=== PATIENT | male | born 1990 | race Two or more races ===

== ENCOUNTER 2025-02-08 09:37 | Outpatient (AMB) | payer OTHER, SELFPAY ==
--- NOTE | 2025-02-08 09:40 | A.OFFVIS_ITS ---
Intake Visit Reasons: Vasectomy consult Intake Note: Patient is present for VASECTOMY CONSULTS Urology Medication:NONE Antibiotic Allergy:NONE Blood Thinner:NONE Field Interviewer Required: No Allergies No Known Allergies (No Known Allergies*) Allergy (Verified 02/08/25 09:41) HPI Comments Details: Romulo is a very pleasant male. He is a patient of . He is seen for the following urologic condition - anxiety about health - Vasectomy evaluation Vasectomy evaluation The patient presents for vasectomy consultation. He is currently He has fathered - 3 child, with a single partner. The youngest child is - 8 month. His partner is aware and permissive for a vasectomy Current form of control is barrier. 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 Patient education has been provided via AUA video, via printed information, risks of failure, recovery time, bruising and potential pain syndrome have been stressed Discussion today focused on the presence of vasectomy and the risks, benefits and alternatives that are available. Vasectomy as intended as a permanent form of control. Printed information and literature was provided to the patient. Overall there is a one in 2500 failure rate. This can occur at any time after vasectomy. Risks were discussed highlighting hematoma, spermatocele, epididymal congestion, development of sperm antibodies, and development of chronic pain estimated between 1-5%. The procedure was reviewed in detail. Anatomical diagrams of the male genitalia were used to explain the location of the vas deferens. The vas deferens will be transected, the proximal end will be cauterized, a metal clip would be applied to separate the 2 vas deferens ends. It was explained the procedure will be done in the office and takes approximately 10-15 minutes. Less common problems that arise with vasectomy include hematoma, bleeding, allergic reaction to anesthetic, epididymal infection, epididymal congestion, scrotal discomfort, spermatic leak, spermatic granuloma and the possibility of antisperm antibodies. He understands these risks and wishes to proceed. Consent was signed at the office today. He also understands that it takes 12 weeks for sperm to fully clear the system. He will need to provide a semen sample at 12 weeks and if this is not clear a 2nd sample at 16 weeks. Medical clearance to stop using protection will only be provided if he satisfies published criteria for sperm clearance. Review of Systems Const Denies chills and Denies fever(s) Card Reports no additional complaints and Denies syncope Resp Denies cough GI Denies abdominal pain and Denies heartburn Reports as per HPI and Denies change in libido Neuro Denies syncope Psych Denies change in libido Endo Denies change in libido Physical Exam Const General: cooperative, healthy appearing, comfortable and no acute distress Orientation/consciousness: patient oriented x3 HEENT Face and sinus: Yes normal facial exam Mouth: moist mucous membranes Neck Neck: Yes normal visual inspection, Yes full ROM and Yes trachea midline Chest Chest palpation & inspection: normal inspection of the chest Resp Effort & Inspection: normal respiratory effort, able to speak in complete sentences and no respiratory distress GI Inspection: Yes normal to inspection Back/Spine/Pelvis Cervical Spine: normal cervical lordosis Thoracic/Lumbar Spine: thoracic and lumbar spine normal to inspection Skin General skin exam: no rashes or lesions noted Neuro General: patient oriented x3, gait normal, tone normal and moves all extremities Extrem General: Yes normal to inspection and Yes capillary refill normal Assessment & Plan Assessment & Plan (1) Anxiety about health: Code(s): R45.89 - Other symptoms and signs involving emotional state Category: Medical Plan Schedule vasectomy Medications: New diazepam Take medication after arrival at office 2 mg PO BID PRN 2 tabs 0RF anxiety 1 day R45.89 - Other symptoms and signs involving emotional state tramadol 50 mg PO Q8H PRN 7 tabs 0RF pain N43.3 - Hydrocele, unspecified, R45.89 - Other symptoms and signs involving emotional state Patient Instructions: This note is constructed using voice recognition software. While every effort has been made to ensure accuracy residential field manager errors may have been included. Imaging studies, laboratory and physical exam results were discussed and reviewed in detail. No major barriers to patient understanding were identified. An opportunity to ask questions regarding the treatment plan was provided. All questions were answered. The patient expressed understanding and agreement with the above treatment plan. The patient is aware they should contact our office by phone for worsening of their current condition or the appearance of new urologic symptoms. Compliance is encouraged with any medications and followup testing that is ordered. It is a privilege to participate in the urologic care of your patient. If you have any questions or concerns regarding treatment for the above conditions, or other urologic issues, please do not hesitate to contact me. The office telephone contact is [phone]. Sincerely, Dr Rah Antonio MD, [facility] - Urology Compassionate Specialist Care for the Genitourinary System Coding Level of Care Code New Pt Level 4 (74603) Diagnoses Anxiety about health R45.89
--- OUTSIDE RECORDS SUMMARY | 2025-02-08 09:54 | XMS_ITS | Clinical Summary ---
Author Organization [facility] [email or web address] [facility] ity Address [address] [place] [address] Care Team Providers Care Supervisor Chassis Assembly Name Role Phone Alyson Marquez MD Primary Care Provider [phone] Social History Tobacco Use Types Packs/Day Years Used Date Smoking Tobacco: Never Assessed Sex and Gender Information Value Date Recorded Sex Assigned at Not on file Legal Sex Male 4:35 AM EST Gender Identity Not on file Sexual Orientation Not on file Plan of Treatment Upcoming Encounters Date Type Department Care Team (Late st Contact Info) Description 08/27/2025 9:00 AM EST [facility] [address] [place] [address] Alyson Marquez MD [address] [place] [address] Health Maintenance Due Date Last Done Comments DTaP,Tdap,and Td Vaccines (1 - Tdap) 2011 Hepatitis B Vaccines (1 of 3 - 19+ 3-dose series) 2011 COVID-19 Vaccine ( - 2023-2 5 season) 2024 Depression Screening 12/10/2024 HIV Screening 12/10/2024 Hepatitis C Screening 12/10/2024 Social Influencers of Health Screening 12/10/2024 Influenza Vaccine (#1) 2025 HIB Vaccines Aged Out No longer eligi ble based on patient's age to complete this topic HPV Vaccines Aged Out No longer eligi ble based on patient's age to complete this topic Hepatitis A Vaccines Aged Out No long er eligible based on patient's age to complete this topic IPV Vaccines Aged Out No longer eligi ble based on patient's age to complete this topic MMR Vaccines Aged Out No longer eligi ble based on patient's age to complete this topic Meningococcal ACWY Vaccine Aged Out N o longer eligible based on patient's age to complete this topic Meningococcal B Vaccine Aged Out No l onger eligible based on patient's age to complete this topic Pneumococcal Vaccine: Pediat rics (0 to 5 Years) and At-Risk Patients (6 to 49 Years) Aged Out No longer eligible b ased on patient's age to complete this topic RSV Immunization Patients Un horace 20 months Aged Out No longer eligible b ased on patient's age to complete this topic Varicella Vaccines Aged Out No longer eligible based on patient's age to complete this topic Insurance [facility] [employer] Care Teams Supervisor Chassis Assembly Relationship Specialty Start Date End Date Alyson Marquez MD [address] [place] [id number] PCP - General Internal Medicine 12/10/24
== END 2025-02-08 10:50 | disposition home or self-care (01) ==
LOC: HO.HUSH 09:38
PROVIDERS: Visit Provider Urology
DX: R45.89 Other symptoms and signs involving emotional state (principal)
CPT/HCPCS: 99204

== ENCOUNTER → 2025-02-08 09:37 | Outpatient (BNVA) | payer OTHER, SELFPAY | PROVIDERS: Visit Provider Urology | DX: Z30.2 Encounter for sterilization (principal); R45.89 Other symptoms and signs involving emotional state | CPT/HCPCS: 99202 ==

== ENCOUNTER 2025-04-09 14:59 | Outpatient (AMB) | payer OTHER, SELFPAY ==
--- NOTE | 2025-04-09 15:03 | MHC.OFFVIS ---
Intake Visit Reasons: vasectomy Intake Note: Patient is present for VASECTOMY Urology Medication:NONE Antibiotic Allergy:NONE Blood Thinner:NONE Airplane Captain Required: No Accompanied by: Self / Same As Patient Allergies No Known Allergies (No Known Allergies*) Allergy (Verified 04/09/25 15:03) HPI Comments Details: Romulo is a very pleasant male. He is a patient of . He is seen for the following urologic condition - anxiety about health - Vasectomy procedure Vasectomy procedure The patient presents for vasectomy procedure. He is currently He has fathered - 3 child, with a single partner. The youngest child is - 8 month. His partner is aware and permissive for a vasectomy Current form of control is barrier. 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 Review of Systems Const Denies chills and Denies fever(s) Card Reports no additional complaints and Denies syncope Resp Denies cough GI Denies abdominal pain and Denies heartburn Reports as per HPI and Denies change in libido Neuro Denies syncope Psych Denies change in libido Endo Denies change in libido Physical Exam Const General: cooperative, healthy appearing, comfortable and no acute distress Orientation/consciousness: patient oriented x3 HEENT Face and sinus: Yes normal facial exam Mouth: moist mucous membranes Neck Neck: Yes normal visual inspection, Yes full ROM and Yes trachea midline Chest Chest palpation & inspection: normal inspection of the chest Resp Effort & Inspection: normal respiratory effort, able to speak in complete sentences and no respiratory distress GI Inspection: Yes normal to inspection Back/Spine/Pelvis Cervical Spine: normal cervical lordosis Thoracic/Lumbar Spine: thoracic and lumbar spine normal to inspection Skin General skin exam: no rashes or lesions noted Neuro General: patient oriented x3, gait normal, tone normal and moves all extremities Extrem General: Yes normal to inspection and Yes capillary refill normal Office Procedures Vasectomy Details: Preoperative diagnosis: Anxiety regarding Postoperative diagnosis: Anxiety regarding unplanned Procedure: Bilateral vasectomy Informed consent had been completed. Preoperative and postoperative instructions were provided to the patient. The patient has transportation home identified at the completion of the procedure. Anti-anxiolytic prescription medication had been taken after consent verification and all questions answered. A limited amount of pain medication was also provided. The penis was elevated using a rubber band that was attached to the patient's shirt. Both vasa were palpated through the skin using a 3 finger technique and the penoscrotal junction was prepped with Betadine. After Betadine application the left vas was elevated using a 3 finger grasping technique. 1% lidocaine was used to create a subdermal bubble. Further anesthetic was then advanced using the 25-gauge needle along the vasa in a proximal fashion. Approximately 2 minutes were allowed to for local anesthetic uptake. Using the sharp spreading instrument the scrotal skin was spread longitudinally in line with the vasa until the subdermal layer had been divided. The vasa was then elevated from the scrotum using a ring clamp. Care was taken to elevate the superior portion of the vasa by rotating the ring clamp in a caudad direction. The battery powered cautery was used to divide the vasal sheath in a longitudinal direction on the exposed vasa and to strip the vasal sheath from the vasa. The sharp spreading instrument was used to further expose the vas within the vasal sheath. A 2nd narrower ring clamp was placed on the exposed vas and used to lift the vas from the vasal sheath. The cautery was used to divide vasal attachments and allow full exposure of a small loop of vasa. The sharp spreading instrument was then used to create a tunnel under the vasa and spread to allow the blood vessels of the vasa to retract from the vasa. A mosquito clamp was placed on the proximal portion of the vas. The battery-powered cautery was used to make a partial division in the proximal vas and then inserted in order to cauterize the proximal end of the vas. This was then cut and allowed to retract into the vasal sheath. The mosquito was then used to twist the vasa 180 degrees creating a fascial interposition as the proximal portion of the vas retracted in the vasal sheath. Using a 4-0 chromic suture the fascial interposition was sutured closed. The distal portion of the vas was then cut in order to obtain a segment of vasa. An open distal vas is preferred for minimizing postprocedure pain. The vasa were allowed to retract back into the scrotum. A small snap was then used to approximate the skin edges and allow hemostasis without placement of a suture. A similar procedure was repeated on the right side. He tolerated the procedure well. Triple antibiotic was applied. A gauze was applied. An ice pack was applied to assist with minimizing swelling. Postoperative instructions were confirmed. He understands the need to continue to use control methods. A semen sample should be brought for inspection under the microscope in 10-12 weeks. CPT 80307 Informed consent given: Yes Informed consent signed: Yes Time out checklist: patient, procedure, site marked/identified, positioning of patient, supplies available, allergies confirmed and team agrees on procedure Anesthetic used: other Specimens: vas segments not sent to pathology [id number] - Vasectomy Office Meds lidocaine (PF) 10 mg/mL (1 %) injection solution Performing Provider: Rah Antonio MD [facility] Administered by: Leah Cordova RN on 04/09/25 15:13 Dose Route Admin Location Dispensed Lot Number Expiration Date NDC Human Relations Manager 2 mL Infiltration 10 mL Total Dispensed Waste 10 mL 0 % Assessment & Plan Assessment & Plan (1) Anxiety about health: Code(s): R45.89 - Other symptoms and signs involving emotional state Category: Medical Plan Three-month follow-up office semen analysis Orders: Orders AMB Vasectomy Today R45.89 - Other symptoms and signs involving emotional state Patient Instructions: This note is constructed using voice recognition software. While every effort has been made to ensure accuracy vacuum tester cans errors may have been included. Imaging studies, laboratory and physical exam results were discussed and reviewed in detail. No major barriers to patient understanding were identified. An opportunity to ask questions regarding the treatment plan was provided. All questions were answered. The patient expressed understanding and agreement with the above treatment plan. The patient is aware they should contact our office by phone for worsening of their current condition or the appearance of new urologic symptoms. Compliance is encouraged with any medications and followup testing that is ordered. It is a privilege to participate in the urologic care of your patient. If you have any questions or concerns regarding treatment for the above conditions, or other urologic issues, please do not hesitate to contact me. The office telephone contact is [phone]. Sincerely, Dr Rah Antonio MD, [facility] - Urology Compassionate Specialist Care for the Genitourinary System Coding Level of Care Code Procedure Only Diagnoses Anxiety about health R45.89 CPT Codes Office Procedure - CPT: 44731 - Vasectomy ([id number])
--- OUTSIDE RECORDS SUMMARY | 2025-04-09 17:25 | XMS_ITS | Clinical Summary ---
Author Organization [facility] ity Address [address] [place] [address] Care Team Providers Care Real Estate Sales Supervisor Name Role Phone Alyson Marquez MD Primary Care Provider [phone] Social History Tobacco Use Types Packs/Day Years [...] AM EST [facility] [address] [place] [address] Alyson Marquez MD [address] [place] [address] Health Maintenance Due Date Last Done Comments DTaP,Tdap,and Td Vaccines (1 - Tdap) 2011 Hepatitis B Vaccines (1 of 3 - 19+ 3-dose series) 2011 Depression Screening 08/01/2024 HIV Screening 12/10/2024 Hepatitis C Screening 12/10/2024 Social Influencers of Health Screening 12/10/2024 COVID-19 Vaccine ( - 2023-2 5 season) 2025 Influenza Vaccine (#1) 2025 HIB Vaccines Aged [...] patient's age to complete this topic Insurance [facility] PL[facility] Care Teams Real Estate Sales Supervisor Relationship Specialty Start Date End Date Alyson Marquez MD [address] [place] [phone] PCP - General Internal Medicine 12/10/24
== END 2025-04-09 15:53 | disposition home or self-care (01) ==
LOC: HO.HUSH 14:59
PROVIDERS: Visit Provider Urology
DX: Z30.2 Encounter for sterilization (principal); R45.89 Other symptoms and signs involving emotional state
CPT/HCPCS: 55250

== ENCOUNTER → 2025-04-09 14:59 | Outpatient (BNVA) | payer OTHER, SELFPAY | PROVIDERS: Visit Provider Urology | DX: R45.89 Other symptoms and signs involving emotional state (principal) | CPT/HCPCS: 55250; J2003 ==

== ENCOUNTER 2025-07-24 10:58 | Outpatient (AMB) | payer OTHER, SELFPAY ==
--- OUTSIDE RECORDS SUMMARY | 2025-07-24 11:05 | XMS_ITS | Clinical Summary ---
Author Organization [address] Building Address [address] [place] [address] Phone Care Team Providers Care Material Disposition Inspector Name Role Phone Alyson Marquez MD Primary Care Provider [phone] Social History Tobacco Use Types Packs/Day Years [...] AM EST Office Visit Internal Medicine - [address] [phone] Alyson Marquez MD [address] [place] [address] Health Maintenance Due Date Last Done Comments DTaP,Tdap,and Td Vaccines (1 - Tdap) 2011 Hepatitis B Vaccines (1 of 3 - 19+ 3-dose series) 2011 HPV Vaccines (1 - 3-dose SCD M series) 2019 Depression Screening 08/01/2024 HIV Screening 12/10/2024 Hepatitis C Screening 12/10/2024 Social Influencers of Health Screening 12/10/2024 COVID-19 Vaccine (1 - 2024-2 6 season) 2025 Influenza Vaccine (#1) 2025 RSV Immunization Adult Patie nts (1 - 1-dose 75+ series) 2067 HIB Vaccines Aged Out No longer eligi [...] patient's age to complete this topic Insurance [facility] Care Teams Material Disposition Inspector Relationship Specialty Start Date End Date Alyson Marquez MD [address] [place] [phone] PCP - General Internal Medicine 12/10/24
--- OUTSIDE RECORDS SUMMARY | 2025-07-24 11:05 | XMS_ITS | Data Portability ---
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 Plan of Treatment Reminders Order Date Submit Date Provider Last Modified By Organization Details Last Modified Time Details Appointments None recorded. Lab urinalysis, complete 2017 018 [facility], [address], [place], [id number], 8 14:33:33 lipid panel, serum 2017 018 [facility], [address], [place], [address], 8 19:00:09 CMP, serum or plasma 2017 018 [facility], [address], [place], [id number], 8 19:00:08 CBC w/ auto diff 2017 018 [facility], [address], [place], [address], 8 14:35:00 tissue transglutam inase iga Ab, serum 2016 017 [facility], [address], [place], [address], 7 13:43:48 lipid panel, serum 2016 017 [facility], [address], [place], [address], 7 20:35:22 CMP, serum or plasma 2016 017 [facility], [address], [place], [id number], 7 20:35:21 CBC w/ auto diff 2016 017 [facility], [address], [place], [address], 7 19:33:58 Referral nutritionis t/dietitian referral 2017 018 [email or web address] Not available 8 12:37:15 nutritionis t/dietitian referral 2016 017 [email or web address] Not available 7 10:25:06 Procedures None recorded. Surgeries None recorded. Imaging None recorded. Medication Orders None recorded. Patient TargetsNo targets recorded. Patient Instructions Encounter Date Encounter Id Patient Instructions Last Modified By Organization Details Last Modified Time 11/01/2016 [id number] managing your allergies: care instructions [email or web address] Not available 11/01/2016 10:24:42 diarrhea: care instructions [email or web address] Not available 11/01/2016 10:24:42 kidney stone: care instructions [email or web address] Not available 11/01/2016 10:24:42 When You Want to Lose Weight: Care Instructions Not available 11/01/2016 10:24:41 Nutrition Referral and Weight Management Follow-up Information [email or web address] Not available 11/01/2016 10:24:18 rec. trial of citrucel as a fiber supp / bulking agent consider start taking claritin daily for prevention of seasonal allergies pmadden Not available 11/01/2016 10:17:51 I have reviewed the note and agree with the assessment and plan of care. [email or web address] Not available 11/01/2016 14:32:50 11/23/2017 [id number] managing your allergies: care instructions pmadden Not available 11/23/2017 11:24:05 allergies: care instructions pmadden Not available 11/23/2017 11:24:06 saline nasal washes: care instructions pmadden Not available 11/23/2017 11:24:06 kidney stone: care instructions pmadden Not available 11/23/2017 11:24:06 earwax blockage: care instructions pmadden Not available 11/23/2017 11:24:06 neck pain: care instructions pmadden Not available 11/23/2017 11:28:57 neck strain: care instructions pmadden Not available 11/23/2017 11:28:57 neck trapeziss upper fibers standing stretch: exercises pmadden Not available 11/23/2017 11:28:57 When You Want to Lose Weight: Care Instructions [email or web address] Not available 11/23/2017 11:24:06 Nutrition Referral and Weight Management Follow-up Information [email or web address] Not available 11/23/2017 11:24:05 rec. get debrox kit - apply 5 drops in affected ear before bedtime, then place cotton ball - do so nightly x 1-3 nights, then use bulb syringe with warm water in the shower on the following day to irrigate the blockage out - do so monthly for prevention, avoid use of q-tips pmadden Not available 11/23/2017 11:23:59 Medications (OTC, herbal therapies, supplements) reviewed and reconciled with patient and or caregiver, including potential side effects, drug interactions, instructions, and the consequences of not taking medication. Reviewed potential barriers to medication adherence, such as side effects from medication or cost of medication. I have reviewed the note and agree with the assessment and plan of care. 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 Body mass index 25-29 - overweight Referring Physician: Efren White, Internal Medicine, Encounter Date: 11/23/2017 Results Created Date Observation Date Name Description Value Unit Range Abnormal Flag Note LastModifiedBy Organization Detail LastModifiedTime 11/03/1911/02/2016 CBC w/ auto diff WBC 5.1 K/mm3 (4.0-1 1.0) Not Available [facility] (Centralized Electronic Ordering - All Locations) Patient Can Go To The Location Of Their Choice, 11/02/2016 19:33:58 11/03/1911/02/2016 CBC w/ auto diff RBC 5.39 M/mm3 (4.70- 6.10) Not Available [facility] (Centralized Electronic Ordering - All Locations) Patient Can Go To The Location Of Their Choice, 11/02/2016 19:33:58 11/03/1911/02/2016 CBC w/ auto diff HGB 15.5 gm/dL (14.0- 18.0) Not Available [facility] (Centralized Electronic Ordering - All Locations) Patient Can Go To The Location Of Their Choice, 11/02/2016 19:33:58 11/03/1911/02/2016 CBC w/ auto diff HCT 47.3 % (42.0- 52.0) Not Available [facility] (Centralized Electronic Ordering - All Locations) Patient Can Go To The Location Of Their Choice, 11/02/2016 19:33:58 11/03/1911/02/2016 CBC w/ auto diff MCV 87.8 fL (80.0- 94.0) Not Available [facility] (Centralized Electronic Ordering - All Locations) Patient Can Go To The Location Of Their Choice, 11/02/2016 19:33:58 11/03/1911/02/2016 CBC w/ auto diff MCH 28.8 pg (27.0- 34.0) Not Available [facility] (Centralized Electronic Ordering - All Locations) Patient Can Go To The Location Of Their Choice, 11/02/2016 19:33:58 11/03/1911/02/2016 CBC w/ auto diff MCHC 32.8 g/dL (33.0- 37.0) low Not Available [facility] (Centralized Electronic Ordering - All Locations) Patient Can Go To The Location Of Their Choice, 11/02/2016 19:33:58 11/03/1911/02/2016 CBC w/ auto diff plt 214 K/mm3 (150-4 60) Not Available [facility] (Centralized Electronic Ordering - All Locations) Patient Can Go To The Location Of Their Choice, 11/02/2016 19:33:58 11/03/1911/02/2016 CBC w/ auto diff RDW-SD 41.9 fL (<47.0 ) Not Available [facility] (Centralized Electronic Ordering - All Locations) Patient Can Go To The Location Of Their Choice, 11/02/2016 19:33:58 11/03/1911/02/2016 CBC w/ auto diff MPV 11.8 fL (9.4-1 2.4) Not Available [facility] (Centralized Electronic Ordering - All Locations) Patient Can Go To The Location Of Their Choice, 11/02/2016 19:33:58 11/03/1911/02/2016 CBC w/ auto diff automated NRBC 0.0 #/100 _WBC' s Not Available [facility] (Centralized Electronic Ordering - All Locations) Patient Can Go To The Location Of Their Choice, 11/02/2016 19:33:58 11/03/1911/02/2016 CBC w/ auto diff abs. NRBC 0.0 K/mm3 Not Available [facility] (Centralized Electronic Ordering - All Locations) Patient Can Go To The Location Of Their Choice, 11/02/2016 19:33:58 11/03/1911/02/2016 CMP, serum or plasm a glucose 96 mg/dL (70-99 ) Not Available [facility] (Centralized Electronic Ordering - All Locations) Patient Can Go To The Location Of Their Choice, 11/02/2016 20:35:21 11/03/1911/02/2016 CMP, serum or plasm a BUN 9 mg/dL (6-20) Not Available [facility] (Centralized Electronic Ordering - All Locations) Patient Can Go To The Location Of Their Choice, 11/02/2016 20:35:21 11/03/1911/02/2016 CMP, serum or plasm a creatinine 0.9 mg/dL (0.7-1 .2) Not Available [facility] (Centralized Electronic Ordering - All Locations) Patient Can Go To The Location Of Their Choice, 11/02/2016 20:35:21 11/03/1911/02/2016 CMP, serum or plasm a sodium 142 mmol/ L (133-1 45) Not Available [facility] (Centralized Electronic Ordering - All Locations) Patient Can Go To The Location Of Their Choice, 11/02/2016 20:35:21 11/03/1911/02/2016 CMP, serum or plasm a potassium 3.9 mmol/ L (3.6-5 .2) Not Available [facility] (Centralized Electronic Ordering - All Locations) Patient Can Go To The Location Of Their Choice, 11/02/2016 20:35:21 11/03/1911/02/2016 CMP, serum or plasm a chloride 104 mmol/ L (98-10 7) Not Available [facility] (Centralized Electronic Ordering - All Locations) Patient Can Go To The Location Of Their Choice, 11/02/2016 20:35:21 11/03/1911/02/2016 CMP, serum or plasm a bicarbonate 24 mmol/ L (22-29 ) Not Available [facility] (Centralized Electronic Ordering - All Locations) Patient Can Go To The Location Of Their Choice, 11/02/2016 20:35:21 11/03/1911/02/2016 CMP, serum or plasm a anion gap 14 (4-17) Not Available [facility] (Centralized Electronic Ordering - All Locations) Patient Can Go To The Location Of Their Choice, 11/02/2016 20:35:21 11/03/1911/02/2016 CMP, serum or plasm a albumin 4.8 gm/dL (3.4-4 .8) Not Available [facility] (Centralized Electronic Ordering - All Locations) Patient Can Go To The Location Of Their Choice, 11/02/2016 20:35:21 11/03/1911/02/2016 CMP, serum or plasm a calcium 9.4 mg/dL (8.6-1 0.5) Not Available [facility] (Centralized Electronic Ordering - All Locations) Patient Can Go To The Location Of Their Choice, 11/02/2016 20:35:21 11/03/1911/02/2016 CMP, serum or plasm a bilirubin,to abdifatah 1.2 mg/dL (0-1.2 ) Not Available [facility] (Centralized Electronic Ordering - All Locations) Patient Can Go To The Location Of Their Choice, 11/02/2016 20:35:21 11/03/1911/02/2016 CMP, serum or plasm a total protein 7.2 gm/dL (6.2-8 .2) Not Available [facility] (Centralized Electronic Ordering - All Locations) Patient Can Go To The Location Of Their Choice, 11/02/2016 20:35:21 11/03/1911/02/2016 CMP, serum or plasm a Ag ratio 2.0 Not Available [facility] (Centralized Electronic Ordering - All Locations) Patient Can Go To The Location Of Their Choice, 11/02/2016 20:35:21 11/03/1911/02/2016 CMP, serum or plasm a AST 16 U/L (0-38) Not Available [facility] (Centralized Electronic Ordering - All Locations) Patient Can Go To The Location Of Their Choice, 11/02/2016 20:35:21 11/03/1911/02/2016 CMP, serum or plasm a alk phos 69 U/L (40-12 9) Not Available [facility] (Centralized Electronic Ordering - All Locations) Patient Can Go To The Location Of Their Choice, 11/02/2016 20:35:21 11/03/1911/02/2016 CMP, serum or plasm a ALT 20 U/L (0-41) Not Available [facility] (Centralized Electronic Ordering - All Locations) Patient Can Go To The Location Of Their Choice, 11/02/2016 20:35:21 11/03/1911/02/2016 CMP, serum or plasm a est GFR non 119 mL/mi n/1.7 3_M2 The CKD-E PI creat inine equat ion has not been valid ated in child guido (<18 years ), pregn ant women , in some racia l or ethni c subgr oups other than Cauca sians and Afric an Ameri cans. Not Available [facility] (Centralized Electronic Ordering - All Locations) Patient Can Go To The Location Of Their Choice, 11/02/2016 20:35:21 11/03/1911/02/2016 CMP, serum or plasm a est GFR 138 mL/mi n/1.7 3_M2 The CKD-E PI creat inine equat ion has not been valid ated in child guido (<18 years ), pregn ant women , in some racia l or ethni c subgr oups other than [place]iy[place] mendy and Afric an Ameri cans. Not Available [facility] (Centralized Electronic Ordering - All Locations) Patient Can Go To The Location Of Their Choice, [id number] 11/02/2016 20:35:21 11/03/1911/02/2016 lipid panel , serum cholesterol, total 146 mg/dL (<200) Not Available [facility] (Centralized Electronic Ordering - All Locations) Patient Can Go To The Location Of Their Choice, 11/02/2016 20:35:22 11/03/1911/02/2016 lipid panel , serum triglyceride 101 mg/dL (<150) Not Available [facility] (Centralized [facility] Ordering - All Locations) Patient Can Go To The Location Of Their Choice, 11/02/2016 20:35:22 11/03/1911/02/2016 lipid panel , serum HDL chol 50 mg/dL (>39) Not Available [facility] (Centralized Electronic Ordering - All Locations) Patient Can Go To The Location Of Their Choice, 11/02/2016 20:35:22 11/03/1911/02/2016 lipid panel , serum LDL cholesterol, calculated 76 mg/dL (0-130 ) Not Available [facility] (Centralized Electronic Ordering - All Locations) Patient Can Go To The Location Of Their Choice, 11/02/2016 20:35:22 11/03/1911/02/2016 lipid panel , serum non HDL cholesterol (calc) 96 mg/dL (<160) Not Available [facility] (Centralized Electronic Ordering - All Locations) Patient Can Go To The Location Of Their Choice, 11/02/2016 20:35:22 11/03/1911/04/2016 tissu e trans gluta benny e iga Ab, serum ttg result 4.72 U/mL (<15.0 1) Refer ence Range : less than or equal to 15 U/mL (nega tive) Effec tive Janinocencio 2016 the refer ence range for this assay has ellington ed from less than 4 U/mL to less than or equal to 15 U/mL. Not Available [facility] (Centralized Electronic Ordering - All Locations) Patient Can Go To The Location Of Their Choice, [id number] 11/04/2016 13:43:48 12/14/1912/13/2017 urina lysis , compl ete appear/color YELLO W CLEAR Not Available [facility] (Centralized Electronic Ordering - All Locations) Patient Can Go To The Location Of Their Choice, 12/13/2017 14:33:33 12/14/1912/13/2017 urina lysis , compl ete sp. gravity 1.028 (1.002 -1.030 ) Not Available [facility] (Centralized Electronic Ordering - All Locations) Patient Can Go To The Location Of Their Choice, 12/13/2017 14:33:33 12/14/1912/13/2017 urina lysis , compl ete urine pH 6.0 (4.0-8 .0) Not Available [facility] (Centralized Electronic Ordering - All Locations) Patient Can Go To The Location Of Their Choice, 12/13/2017 14:33:33 12/14/19 18 12/13/2017 urina lysis , compl ete urine albumin NEGATI VE (neg) Not Available [facility] (Centralized Electronic Ordering - All Locations) Patient Can Go To The Location Of Their Choice, 12/13/2017 14:33:33 12/14/1912/13/2017 urina lysis , compl ete urine glucose NEGATI VE (neg) Not Available [facility] (Centralized Electronic Ordering - All Locations) Patient Can Go To The Location Of Their Choice, 12/13/2017 14:33:33 12/14/1912/13/2017 urina lysis , compl ete urine ketones NEGATI VE (neg) Not Available [facility] (Centralized Electronic Ordering - All Locations) Patient Can Go To The Location Of Their Choice, 12/13/2017 14:33:33 12/14/1912/13/2017 urina lysis , compl ete urine bilirubin NEGATI VE (neg) Not Available [facility] (Centralized Electronic Ordering - All Locations) Patient Can Go To The Location Of Their Choice, 12/13/2017 14:33:33 12/14/1912/13/2017 urina lysis , compl ete urine hemoglobn 2+ (neg) abnormal Not Available [facility] (Centralized [facility] Ordering - All Locations) Patient Can Go To The Location Of Their Choice, 12/13/2017 14:33:33 12/14/1912/13/2017 urina lysis , compl ete urine nitrite NEGATI VE (neg) Not Available [facility] (Centralized Electronic Ordering - All Locations) Patient Can Go To The Location Of Their Choice, 12/13/2017 14:33:33 12/14/1912/13/2017 urina lysis , compl ete urine leukocyte NEGATI VE (neg) Not Available [facility] (Centralized Electronic Ordering - All Locations) Patient Can Go To The Location Of Their Choice, 12/13/2017 14:33:33 12/14/1912/13/2017 urina lysis , compl ete urobilinogen NORMAL mg/dL (norm) Not Available [facility] ([facility] Ordering - All Locations) Patient Can Go To The Location Of Their Choice, 12/13/2017 14:33:33 12/14/1912/13/2017 urina lysis , compl ete urine WBC's 1 /hpf (0-5) Not Available [facility] (Centralized [facility] Ordering - All Locations) Patient Can Go To The Location Of Their Choice, 12/13/2017 14:33:33 12/14/1912/13/2017 urina lysis , compl ete urine RBC's 4 /hpf (<3) high Not Available [facility] (Centralized Electronic Ordering - All Locations) Patient Can Go To The Location Of Their Choice, 12/13/2017 14:33:33 12/14/1912/13/2017 urina lysis , compl ete mucus HEAVY /lpf Not Available [facility] (Centralized Electronic Ordering - All Locations) Patient Can Go To The Location Of Their Choice, 12/13/2017 14:33:33 12/14/1912/13/2017 CBC w/ auto diff WBC 6.1 K/mm3 (4.0-1 1.0) Not Available [facility] (Centralized Electronic Ordering - All Locations) Patient Can Go To The Location Of Their Choice, 12/13/2017 14:35:00 12/14/1912/13/2017 CBC w/ auto diff RBC 5.46 M/mm3 (4.70- 6.10) Not Available [facility] (Centralized Electronic Ordering - All Locations) Patient Can Go To The Location Of Their Choice, 12/13/2017 14:35:12/14/1912/13/2017 CBC w/ auto diff HGB 16.1 gm/dL (14.0- 18.0) Not Available [facility] (Centralized Electronic Ordering - All Locations) Patient Can Go To The Location Of Their Choice, 12/13/2017 14:35:12/14/1912/13/2017 CBC w/ auto diff HCT 47.7 % (42.0- 52.0) Not Available [facility] (Centralized Electronic Ordering - All Locations) Patient Can Go To The Location Of Their Choice, 12/13/2017 14:35:12/14/1912/13/2017 CBC w/ auto diff MCV 87.4 fL (80.0- 94.0) Not Available [facility] (Centralized Electronic Ordering - All Locations) Patient Can Go To The Location Of Their Choice, 12/13/2017 14:35:12/14/1912/13/2017 CBC w/ auto diff MCH 29.5 pg (27.0- 34.0) Not Available [facility] (Centralized Electronic Ordering - All Locations) Patient Can Go To The Location Of Their Choice, 12/13/2017 14:35:12/14/1912/13/2017 CBC w/ auto diff MCHC 33.8 g/dL (33.0- 37.0) Not Available [facility] (Centralized Electronic Ordering - All Locations) Patient Can Go To The Location Of Their Choice, 12/13/2017 14:35:12/14/1912/13/2017 CBC w/ auto diff plt 218 K/mm3 (150-4 60) Not Available [facility] (Centralized Electronic Ordering - All Locations) Patient Can Go To The Location Of Their Choice, 12/13/2017 14:35:12/14/1912/13/2017 CBC w/ auto diff RDW-SD 39.0 fL (<47.0 ) Not Available [facility] (Centralized Electronic Ordering - All Locations) Patient Can Go To The Location Of Their Choice, 12/13/2017 14:35:00 12/14/19 18 12/13/2017 CBC w/ auto diff MPV 11.0 fL (9.4-1 2.4) Not Available [facility] (Centralized Electronic Ordering - All Locations) Patient Can Go To The Location Of Their Choice, 12/13/2017 14:35:00 12/14/19 18 12/13/2017 CBC w/ auto diff automated NRBC 0.0 #/100 _WBC' s Not Available [facility] (Centralized Electronic Ordering - All Locations) Patient Can Go To The Location Of Their Choice, 12/13/2017 14:35:00 12/14/19 18 12/13/2017 CBC w/ auto diff abs. NRBC 0.0 K/mm3 Not Available [facility] (Centralized Electronic Ordering - All Locations) Patient Can Go To The Location Of Their Choice, 12/13/2017 14:35:00 12/14/19 18 12/13/2017 CBC w/ auto diff neut # 3.1 K/mm3 (1.3-7 .0) Not Available [facility] (Centralized Electronic Ordering - All Locations) Patient Can Go To The Location Of Their Choice, 12/13/2017 14:35:00 12/14/19 18 12/13/2017 CBC w/ auto diff lymph # 2.3 K/mm3 (0.8-3 .1) Not Available [facility] (Centralized Electronic Ordering - All Locations) Patient Can Go To The Location Of Their Choice, 12/13/2017 14:35:00 12/14/19 18 12/13/2017 CBC w/ auto diff mono# 0.6 K/mm3 (0.4-1 .3) Not Available [facility] (Centralized Electronic Ordering - All Locations) Patient Can Go To The Location Of Their Choice, 12/13/2017 14:35:00 12/14/1912/13/2017 CBC w/ auto diff eo # 0.1 K/mm3 (0.0-0 .4) Not Available [facility] (Centralized Electronic Ordering - All Locations) Patient Can Go To The Location Of Their Choice, 12/13/2017 14:35:00 12/14/1912/13/2017 CBC w/ auto diff baso # 0.0 K/mm3 (0.0-0 .1) Not Available [facility] (Centralized Electronic Ordering - All Locations) Patient Can Go To The Location Of Their Choice, 12/13/2017 14:35:00 12/14/1912/13/2017 CBC w/ auto diff abs. imm gran 0.0 K/mm3 Not Available [facility] ([facility] Ordering - All Locations) Patient Can Go To The Location Of Their Choice, 12/13/2017 14:35:12/14/1912/13/2017 CBC w/ auto diff neut 50.2 % (44-76 ) Not Available [facility] (Centralized Electronic Ordering - All Locations) Patient Can Go To The Location Of Their Choice, 12/13/2017 14:35:12/14/1912/13/2017 CBC w/ auto diff lymph 37.3 % (15-43 ) Not Available [facility] (Centralized Electronic Ordering - All Locations) Patient Can Go To The Location Of Their Choice, 12/13/2017 14:35:00 12/14/1912/13/2017 CBC w/ auto diff monocyte 9.9 % (4.5-1 0.5) Not Available [facility] (Centralized Electronic Ordering - All Locations) Patient Can Go To The Location Of Their Choice, 12/13/2017 14:35:12/14/1912/13/2017 CBC w/ auto diff eo 1.2 % (0-6) Not Available [facility] (Centralized Electronic Ordering - All Locations) Patient Can Go To The Location Of Their Choice, 12/13/2017 14:35:00 12/14/1912/13/2017 CBC w/ auto diff baso 0.7 % (0-2) Not Available [facility] (Centralized Electronic Ordering - All Locations) Patient Can Go To The Location Of Their Choice, 12/13/2017 14:35:00 12/14/1912/13/2017 CBC w/ auto diff imm gran 0.7 % (0.0-0 .6) high Not Available [facility] (Centralized Electronic Ordering - All Locations) Patient Can Go To The Location Of Their Choice, 12/13/2017 14:35:00 12/14/1912/13/2017 CMP, serum or plasm a glucose 97 mg/dL (70-99 ) Not Available [facility] (Centralized Electronic Ordering - All Locations) Patient Can Go To The Location Of Their Choice, 12/13/2017 19:00:12/14/1912/13/2017 CMP, serum or plasm a BUN 16 mg/dL (6-20) Not Available [facility] (Centralized Electronic Ordering - All Locations) Patient Can Go To The Location Of Their Choice, 12/13/2017 19:00:12/14/1912/13/2017 CMP, serum or plasm a creatinine 1.0 mg/dL (0.7-1 .2) Not Available [facility] (Centralized Electronic Ordering - All Locations) Patient Can Go To The Location Of Their Choice, 12/13/2017 19:00:12/14/1912/13/2017 CMP, serum or plasm a sodium 138 mmol/ L (133-1 45) Not Available [facility] (Centralized Electronic Ordering - All Locations) Patient Can Go To The Location Of Their Choice, 12/13/2017 19:00:12/14/1912/13/2017 CMP, serum or plasm a potassium 4.4 mmol/ L (3.6-5 .2) Not Available [facility] (Centralized Electronic Ordering - All Locations) Patient Can Go To The Location Of Their Choice, 12/13/2017 19:00:12/14/1912/13/2017 CMP, serum or plasm a chloride 101 mmol/ L (98-10 7) Not Available [facility] (Centralized Electronic Ordering - All Locations) Patient Can Go To The Location Of Their Choice, 12/13/2017 19:00:12/14/1912/13/2017 CMP, serum or plasm a bicarbonate 25 mmol/ L (22-29 ) Not Available [facility] (Centralized Electronic Ordering - All Locations) Patient Can Go To The Location Of Their Choice, 12/13/2017 19:00:12/14/1912/13/2017 CMP, serum or plasm a anion gap 12 (4-17) Not Available [facility] (Centralized Electronic Ordering - All Locations) Patient Can Go To The Location Of Their Choice, 12/13/2017 19:00:12/14/1912/13/2017 CMP, serum or plasm a albumin 4.4 gm/dL (3.4-4 .8) Not Available [facility] (Centralized Electronic Ordering - All Locations) Patient Can Go To The Location Of Their Choice, 12/13/2017 19:00:12/14/1912/13/2017 CMP, serum or plasm a calcium 9.3 mg/dL (8.6-1 0.5) Not Available [facility] (Centralized Electronic Ordering - All Locations) Patient Can Go To The Location Of Their Choice, 12/13/2017 19:00:12/14/1912/13/2017 CMP, serum or plasm a bilirubin,to abdifatah 1.3 mg/dL (0-1.2 ) high Not Available [facility] (Centralized Electronic Ordering - All Locations) Patient Can Go To The Location Of Their Choice, 12/13/2017 19:00:12/14/1912/13/2017 CMP, serum or plasm a total protein 7.0 gm/dL (6.2-8 .2) Not Available [facility] (Centralized Electronic Ordering - All Locations) Patient Can Go To The Location Of Their Choice, 12/13/2017 19:00:12/14/1912/13/2017 CMP, serum or plasm a Ag ratio 1.7 Not Available [facility] (Centralized Electronic Ordering - All Locations) Patient Can Go To The Location Of Their Choice, 12/13/2017 19:00:12/14/1912/13/2017 CMP, serum or plasm a AST 18 U/L (0-38) Not Available [facility] (Centralized Electronic Ordering - All Locations) Patient Can Go To The Location Of Their Choice, 12/13/2017 19:00:12/14/1912/13/2017 CMP, serum or plasm a alk phos 60 U/L (40-12 9) Not Available [facility] (Centralized Electronic Ordering - All Locations) Patient Can Go To The Location Of Their Choice, 12/13/2017 19:00:12/14/1912/13/2017 CMP, serum or plasm a ALT 25 U/L (0-41) Not Available [facility] (Centralized Electronic Ordering - All Locations) Patient Can Go To The Location Of Their Choice, 12/13/2017 19:00:12/14/1912/13/2017 CMP, serum or plasm a est GFR non 104 mL/mi n/1.7 3_M2 Creat inine based estim ated glome rular filtr ation rate (eGFR ) is calcu lated using the Chron ic Kidne y Disea se Epide miolo gy Colla borat ion (CKD- EPI). The CKD-E PI creat inine equat ion has not been valid ated in child guido (<18 years ), pregn ant women or in some racia l or ethni c subgr oups other than Cauca sians and Afric an Ameri cans. Not Available [facility] (Centralized Electronic Ordering - All Locations) Patient Can Go To The Location Of Their Choice, 12/13/2017 19:00:12/14/1912/13/2017 CMP, serum or plasm a est GFR 121 mL/mi n/1.7 3_M2 Creat inine based estim ated glome rular filtr ation rate (eGFR ) is calcu lated using the Chron ic Kidne y Disea se Epide miolo gy Colla borat ion (CKD- EPI). The CKD-E PI creat inine equat ion has not been valid ated in child guido (<18 years ), pregn ant women or in some racia l or ethni c subgr oups other than Cauca sia and Afric an Ameri cans. Not Available [facility] (Centralized Electronic Ordering - All Locations) Patient Can Go To The Location Of Their Choice, 12/13/2017 19:00:12/14/1912/13/2017 lipid panel , serum cholesterol, total 166 mg/dL (<200) Not Available [facility] (Centralized Electronic Ordering - All Locations) Patient Can Go To The Location Of Their Choice, 12/13/2017 19:00:12/14/1912/13/2017 lipid panel , serum triglyceride 93 mg/dL (<150) Not Available [facility] (Centralized Electronic Ordering - All Locations) Patient Can Go To The Location Of Their Choice, 12/13/2017 19:00:12/14/1912/13/2017 lipid panel , serum HDL chol 63 mg/dL (>39) Not Available [facility] (Centralized Electronic Ordering - All Locations) Patient Can Go To The Location Of Their Choice, [id number] 12/13/2017 19:00:09 12/14/1912/13/2017 lipid panel , serum LDL cholesterol, calculated 84 mg/dL (0-130 ) Not Available [facility] (Centralized Electronic Ordering - All Locations) Patient Can Go To The Location Of Their Choice, [id number] 12/13/2017 19:00:09 12/14/1912/13/2017 lipid panel , serum non HDL cholesterol (calc) 103 mg/dL (<160) Not Available [facility] (Centralized Electronic Ordering - All Locations) Patient Can Go To The Location Of Their Choice, [id number] 12/13/2017 19:00:09 Result Notes None recorded. Problems Name Problem SNOMED Code Status Onset Date Resolution Date Notes Provider Name and Address Organization Details Recorded Time No current problems or disability 524732253 [facility] Kidney stone 67048707 Active 018 Efren White PA-C [address], [place], [address], [facility] 8 11:13:36 Allergic rhinitis 12650521 Active 018 Efren White PA-C [address], [place], [address], [facility] 8 11:13:40 Problem Notes None recorded. Procedures Surgical History Date Name Laterality Status Provider Name and Address Organization Details Recorded Time No surg proc w/in 30 days completed Jeanna Stevens MA [facility] 11/23/2017 10:20:44 Imaging Results None recorded. Procedure Notes None recorded. Medical Equipment None Reported. Allergies No known drug allergies Medications Not known to be on any medication Vitals Date Recorded Body height Body weight Body mass index (BMI) Heart rate Body temperature Oxygen saturation Systolic And Diastolic Provider Name and Address Organization Details Last Updated DateTime 7 167.64 cm 36988.1 5 g 26.5 kg/m2 84 /min 97.8 [degF] 98 % 99/60 mm[Hg] Malika Farr MA [facility] 7 09:38:18 Date Recorded Body temperature Oxygen saturation Heart rate Body weight Body mass index (BMI) Body height Systolic And Diastolic Provider Name and Address Organization Details Last Updated DateTime 8 97.9 [degF] 98 % 77 /min 32709.1 1 g 26.9 kg/m2 168.91 cm 122/78 mm[Hg] Jeanna blake MA [facility] 8 10:29:33 Social History Question Answer Notes LastModified by Organizat ion Details LastModified Time Tobacco Smoking Status Never Smoker MILAN Nelson, [facility] 11/01/2016 09:34:32 Do You Have An Advance Directive? Yes HCP Signed 11/23/17 Information not available 11/23/2017 Is Blood Transfusion Acceptable In An Emergency? Yes Information not available 11/01/2016 What Is Your Level Of Caffeine Consumption? Occasional Energy Drinks 1-2 X Week Information not available 11/23/2017 How Much Tobacco Do You Chew? None Information not available 11/23/2017 What Type Of Diet Are You Following? REGULAR Information not available 11/01/2016 Which Illicit Or Recreational Drugs Have You Used? None Information not available 11/01/2016 Live Alone Or With Others? With Others Dad (Romulo Guo) Information not available 11/01/2016 Do You Take Precautions To Prevent Distracted Driving? Yes Information not available 11/01/2016 How Often Do You Need To Have Someone Help You When You Read Instructions, Pamphlets, Or Other Written Material From Your Doctor Or Pharmacy? Never Information not available 11/01/2016 Have You Served In The ? No Information not available 11/01/2016 What Was The Date Of Your Most Recent Tobacco Screening? 11/23/2017 Information not available 02/22/2019 How Many Children Do You Have? 0 Information not available 11/01/2016 Seat Belts Used Routinely Yes Information not available 11/01/2016 Are You Sexually Active? Yes Information not available 11/23/2017 Smoke Alarm In Home Yes Information not available 11/01/2016 At What Age Did You Start Smoking Tobacco? 0 Information not available 11/23/2017 Are You Passively Exposed To Smoke? No Information not available 11/01/2016 How Much Tobacco Do You Smoke? No Information not available 11/23/2017 Do You Use Sunscreen Routinely? Yes Information not available 11/01/2016 How Many Years Have You Smoked Tobacco? 0 Information not available 11/23/2017 Sex: Unknown Functional Status Question Answer Note LastModified by Organizat ion Details LastModified Time What is your level of alcohol consumption? None Information not available 11/01/2016 Are you currently employed? Yes Information not available 11/01/2016 Are you able to care for yourself independently? 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 Occasional 2 x week Information not available 11/23/2017 Mental Status None recorded. Family History Relationship Description Onset Age of this Age Resolved Age Notes LastModified by Organization Details LastModified Time Father Diabetes mellitus [email or web address] s Not available 11/23/2017 10:26:16 Mother Multiple sclerosis [email or web address] s Not available 11/23/2017 10:26:22 Medical History No medical history recorded. Immunizations Vaccine Type Date Status Note Provider Nam e and Address Organization Details Recorded Time DTaP 2 completed Christianadeborah vyas, [facility] 11/17/2016 15:12:56 DTaP 3 completed Christianadeborah vyas, [facility] 11/17/2016 15:13:01 DTaP 3 completed Christianadeborah vyas, [facility] 11/17/2016 15:13:06 DTaP 5 completed Christiana Acosta null, [facility] 11/17/2016 15:13:10 DTaP 7 completed Christiana Acosta null, [facility] 11/17/2016 15:13:15 [facility] ([facility]) 2 completed Christiana Acosta null, [facility] 11/17/2016 15:13:25 Hib ([facility]) 3 completed Christiana Acosta null, [facility] 11/17/2016 15:13:29 Hib ([facility]) 3 completed Christiana Acosta null, [facility] 11/17/2016 15:13:33 IPV 2 completed Christiana Acosta null, [facility] 11/17/2016 15:13:43 IPV 3 completed Christiana Acosta null, [facility] 11/17/2016 15:13:47 IPV 3 completed Christiana Acosta null, [facility] 11/17/2016 15:13:52 IPV 7 completed Christiana Acosta null, [facility] 11/17/2016 15:13:55 Hep B, adult 2 completed Christiana Acosta null, [facility] 11/17/2016 15:14:05 Hep B, adult 2 completed Christiana Acosta null, [facility] 11/17/2016 15:14:10 Hep B, adult 2 completed Christiana Acosta null, [facility] 11/17/2016 15:14:14 MMR 3 completed Christiana Acosta null, [facility] 11/17/2016 15:14:24 MMR 7 completed Christiana Acosta null, [facility] 11/17/2016 15:14:29 varicella 4 completed Christiana Acosta null, [facility] 11/17/2016 15:14:43 varicella 8 completed Christiana Acosta null, [facility] 11/17/2016 15:14:49 HPV, unspecified formulation 1 completed Christiana Acosta null, [facility] 11/17/2016 15:15:02 Tdap 8 completed Christiana Acosta null, [facility] 11/17/2016 15:15:13 meningococcal C conjugate 7 completed Christiana Acosta null, [facility] 11/17/2016 15:15:28 Td (adult) 2 completed Christiana Acosta null, [facility] 11/17/2016 15:15:39 Tdap 8 completed Not Available [facility] 08/18/2019 02:21:47 HPV9 8 completed Not Available [facility] 08/18/2019 02:22:00 Past Encounters Encounter ID Performer Location Encounter Start Date Encounter Closed Date Diagnosis/Indication Diagnosis SNOMED-CT Code Diagnosis ICD10 Code Diagnosis IMO Codes Diagnosis Note [id number] Efren White PA-C Main Office [address] [facility] [address] [facility] [place] [address] 11/01/2016 09:19:36 11/01/2016 10:25:06 Adult health examination 509886460 Z00.00 Body mass index 25-29 - overweight 736837680 Z68.26 Diarrhea 16179562 R19.7 once/day - ? d/t stress (ibs-d), will make sure does not have celiac (less likely) - no other warning signs of ibd or fh crc Kidney stone 10414460 N2 0.0 had kidney stones ~ 10.16 rx'd at - signed med rec release - stopped soda, more water lately - no problems since Allergic rhinitis 876639 04 J30.9 see below [id number] Efren White PA-C Main Office [address] [facility] [address] [facility] [place] [address] 11/23/2017 10:11:18 11/23/2017 11:44:26 Adult health examination 835476857 Z00.00 Administra tion of viral vaccine 73372009 Z23 Body mass index 25-29 - overweight 009176259 Z68.26 Diarrhea 84762462 R19.7 better lately, no problems, ttg was neg. Kidney stone 55684417 N2 0.0 had kidney stones ~ 10.16 rx'd at - stopped soda, more water lately - no problems since Allergic rhinitis 205557 04 J30.9 consider claritin qd Microscopic hematuria 19 9883999 R31.21 had this c DOT PE back in 2.18 - will recheck --- if +, consider uro re-eval -- h/o kidney stones 10.16 Impacted c erumen in right ear 1262330325 482879 H61.21 mild Strain of trapezius muscle 755605565 S46.819A mild - occ bothers him c long driving at work - prob from holding steering wheel, elevating delts/shou lders for long periods of time - rec HEP, consider prn moist heat Health Concerns Section Related Observation LastModified by Organization Detai ls LastModified Time None Recorded Concern Status LastModified by Organization Details LastModified Time None Recorded Advance Directives Directive Y: HCP signed 11/23/17 Payers Insurance Date Sequence Insurance Name Policy Number Policy Burnett Covered Member ID Burnett Member ID Guarantor Name 11/23/2017 1 [facility] Mehrdad Mcclain [id number] Romulo Chandler Mcclain 11/22/2017 1 [facility] [id number] Romulo Mcclain [id number] Romulosimona Chandler Mcclain Notes Date Note Type Note Provider Name and Address Organization Details Recorded Time 11/01/2016 text/html Generic HPI TemplateReported by Patient here for heel shaper pe. no records to review. plays basketball occ. Elizabeth Funes-Feliciano vyas [facility] [place] 11/01/2016 14:33:03 11/23/2017 text/html Generic HPI TemplateReported by Patient here for annual PE. Santino Gomez MD [address] [address], [place], [address], [facility] [place] 11/23/2017 13:11:51
--- NOTE | 2025-07-24 11:09 | MHC.OFFVIS ---
Intake Visit Reasons: 3m/ semen analysis(set) Intake Note: Reason for Visit: Post Vasectomy Semen Analysis Urology Meds: None Blood Thinners: None Labs: None Imaging: None Last PVR: None Allergies No Known Allergies (No Known Allergies*) Allergy (Verified 04/09/25 15:03) HPI Comments Details: Romulo is a very pleasant male. He is a patient of . He is seen for the following urologic condition - anxiety about health - Vasectomy follow-up No sperm seen on high-powered field evaluation Minimal issues following procedure P.r.n. follow-up Vasectomy follow-up The patient presents for vasectomy follow-up. He is currently He has fathered - 3 child, with a single partner. The youngest child is - 8 month. His partner is aware and permissive for a vasectomy Current form of control is barrier. 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 Review of Systems Const Denies chills and Denies fever(s) Card Reports no additional complaints and Denies syncope Resp Denies cough GI Denies abdominal pain and Denies heartburn Reports as per HPI and Denies change in libido Neuro Denies syncope Psych Denies change in libido Endo Denies change in libido Physical Exam Const General: cooperative, healthy appearing, comfortable and no acute distress Orientation/consciousness: patient oriented x3 HEENT Face and sinus: Yes normal facial exam Mouth: moist mucous membranes Neck Neck: Yes normal visual inspection, Yes full ROM and Yes trachea midline Chest Chest palpation & inspection: normal inspection of the chest Resp Effort & Inspection: normal respiratory effort, able to speak in complete sentences and no respiratory distress GI Inspection: Yes normal to inspection Back/Spine/Pelvis Cervical Spine: normal cervical lordosis Thoracic/Lumbar Spine: thoracic and lumbar spine normal to inspection Skin General skin exam: no rashes or lesions noted Neuro General: patient oriented x3, gait normal, tone normal and moves all extremities Extrem General: Yes normal to inspection and Yes capillary refill normal Assessment & Plan Assessment & Plan (1) Anxiety about health: Code(s): R45.89 - Other symptoms and signs involving emotional state Category: Medical Plan P.r.n. follow-up Patient Instructions: This note is constructed using voice recognition software. While every effort has been made to ensure accuracy family day care worker errors may have been included. Imaging studies, laboratory and physical exam results were discussed and reviewed in detail. No major barriers to patient understanding were identified. An opportunity to ask questions regarding the treatment plan was provided. All questions were answered. The patient expressed understanding and agreement with the above treatment plan. The patient is aware they should contact our office by phone for worsening of their current condition or the appearance of new urologic symptoms. Compliance is encouraged with any medications and followup testing that is ordered. It is a privilege to participate in the urologic care of your patient. If you have any questions or concerns regarding treatment for the above conditions, or other urologic issues, please do not hesitate to contact me. The office telephone contact is [phone]. Sincerely, Dr Rah Antonio MD, [facility] - Urology Compassionate Specialist Care for the Genitourinary System Coding Level of Care Code Est Pt Level 3 (32673) Diagnoses Anxiety about health R45.89
== END 2025-07-24 11:45 | disposition home or self-care (01) ==
LOC: HO.HUSH 10:58
PROVIDERS: Visit Provider Urology
DX: R45.89 Other symptoms and signs involving emotional state (principal)
CPT/HCPCS: 99213

== ENCOUNTER → 2025-07-24 10:58 | Outpatient (BNVA) | payer OTHER, SELFPAY | PROVIDERS: Visit Provider Urology | DX: Z48.816 Encounter for surgical aftercare following surgery on the genitourinary system (principal); R45.89 Other symptoms and signs involving emotional state; Z98.52 Vasectomy status | CPT/HCPCS: 99212 ==